=== PATIENT | female | born 1950 | race Caucasian/White ===

== ENCOUNTER 2017-04-26 15:38 | Inpatient (IN) ==
[2017-04-26] MEDS: 0.9 % SODIUM CHLORIDE 1,000 ML IV SCH ×3 (16:45→20:45)
--- NOTE | 2017-04-26 16:58 | XRay Report ---
CLINICAL INFORMATION: Weakness dizziness and productive cough COMPARISON: 04/28/2016 FINDINGS: Moderate size hiatal hernia is stable. Mild cardiomegaly is unchanged. Right subclavian Port-A-Cath tip overlies the mid right atrium. Lungs are clear. No effusion. Minimal chronic wedging midthoracic vertebral bodies stable IMPRESSION: Moderate size hiatal hernia - stable. No pneumonia or other acute disease evident Interpreted and Authenticated by: Mariano Silva 04/26/17
[2017-04-26 17:01] LABS: Creatine Kinase MB 1.9 ng/ml (0-2.9)
[2017-04-26 17:02] LABS: ALT/SGPT 33 U/l (0-40); Albumin 3.6 gm/dL (3.2-5.2); Albumin/Globulin Ratio 0.9 (1.0-2.3); Alkaline Phosphatase 72 U/L (39-117); Basophils # (Auto) 0 K/mcL (0.0-0.3); Basophils % (Auto) 0.1 % (0.0-2.0); Blood Urea Nitrogen 27 mg/dl (8-23); Creatine Kinase 108 IU/L (24-170); Eosinophils # (Auto) 0.3 K/mcL (0.0-0.7); Eosinophils % (Auto) 3.1 % (0.0-7.0); Granulocytes % (Auto) 62.8 % (38.0-78.0); Lymphocytes # (Auto) 2.6 K/mcL (1.5-4.8); Lymphocytes % (Auto) 29.7 % (15.5-49.0); Mean Cell Volume 114.9 fL (80.0-100.0); Mean Corpuscular HGB Conc 33.7 g/dL (31.0-36.0); Mean Corpuscular Hemoglobin 38.8 pg (26.0-34.0); Monocytes # (Auto) 0.4 K/mcL (0.1-0.9); Monocytes % (Auto) 4.3 % (1.0-12.0); Platelet Count 56 K/mcL (140-440); RBC 2.16 M/mcL (4.00-5.20); Red Cell Distribution Width 20.5 % (11.5-14.5)
--- NOTE | 2017-04-26 19:25 | Emergency Department Note ---
Dizziness HPI - General Chief Complaint: Dizziness Stated Complaint: Dizziness, productive cough Time Seen by Provider: 04/26/17 15:43 Source: patient Mode of arrival: wheelchair Limitations: no limitations - History of Present Illness HPI Narrative: 66-year-old female presents with dizziness and weakness. Onset 3 weeks ago but much worse over the last 48 hours. States "I am just not doing well ". States she has stage IV breast cancer with metastases to the bone. States she hurts all over and takes hydrocodone and morphine at home and they have increased her hydrocodone dose for the last 4 weeks or so. Unsure if that is related. No shortness of breath. No difficulty breathing. States she just generally feels weak. No abdominal pain. No dysuria or frequency. She has had a chronic cough she reports for about 6 months. States they did a chest x-ray a couple months ago that did not show anything. States her oncologist is Dr. Silverio. States she is having a hard time getting around due to weakness and constant dizziness. Does not have enough help at home. Her is here and is very poor historian and hard to get any information from. She denies being set up with hospice or any type of home health. The patient states she wants to be a no code and comfort measures only. However the states he wants everything done. He does not have a living will or advanced directive. She does not have any family close by, they are all in [place]. No fever or chills. States she had some nausea for a day or 2 last week but no nausea since then. No vomiting or diarrhea. - Related Data Home Medications Medication Instructions Recorded Confirmed gabapentin 600 mg tablet 600 mg PO TID 04/06/16 04/26/17 hydrocodone 7.5 mg-acetaminophen 1 tab PO Q4H PRN tab 04/06/16 04/26/17 325 mg tablet letrozole 2.5 mg tablet 2.5 mg PO QDAY tab 04/06/16 04/26/17 montelukast 10 mg tablet 10 mg PO QDAY tab 04/06/16 04/26/17 morphine 15 mg immediate release 15 mg PO QDAY PRN tab 04/06/16 04/26/17 tablet tizanidine 4 mg capsule 4 mg PO TID cap 04/06/16 04/26/17 ferrous gluconate 324 mg (36 mg 324 mg PO QDAY 07/25/17 10/31/17 iron) tablet multivitamin tablet 1 tab-cap PO QDAY 01/18/17 04/26/17 omeprazole 20 mg capsule,delayed 20 mg PO BID 01/18/17 04/26/17 release venlafaxine ER 150 mg 150 mg PO QDAY 01/18/17 04/26/17 capsule,extended release 24 hr baclofen 20 mg tablet 20 mg PO TID tab 02/10/17 04/26/17 lorazepam 1 mg tablet 1 mg PO QHS tab 02/10/17 04/26/17 polyethylene glycol 3350 17 PO 30 Days #527 02/10/17 04/26/17 gram/dose oral powder trazodone 100 mg tablet 100 mg PO QDAY tab 02/10/17 04/26/17 Previous Rx's Medication Instructions Recorded folic acid 1 mg tablet 1 mg PO QDAY #30 tab 01/06/17 tamsulosin 0.4 mg capsule 0.4 mg PO QDAY #30 cap 01/18/17 methotrexate sodium 2.5 mg tablet 20 mg PO QWEEK #32 tab 02/10/17 Allergies Allergy/AdvReac Type Severity Reaction Status Date / Time docetaxel [From Taxotere] Allergy Unknown Unknown Verified 04/26/17 15:43 duloxetine [From Cymbalta] Allergy Unknown Unknown Verified 04/26/17 15:43 topiramate [From Topamax] Allergy Unknown Unknown Verified 04/26/17 15:43 tramadol Allergy Unknown Unknown Verified 04/26/17 15:43 Review of Systems All systems ED: reviewed and negative except as stated. Past Medical History - Past Medical History [facility] Narrative: Medical History (Last Reviewed 04/26/17 @ 15:22 by Jessica Zurita RN) Urinary hesitancy (Chronic) Urinary frequency (Chronic) Encounter for long-term (current) use of high-risk medication (Chronic) Metastatic breast cancer (Chronic) Rheumatoid arthritis (Chronic) Fibromyalgia (Chronic) Back pain (Chronic) Polyarthralgia (Chronic) Arthritis (Chronic) Swelling (Chronic) Chronic elbow pain (Chronic) Chronic hand pain (Chronic) Past Surgical History (Last Reviewed 04/26/17 @ 15:22 by Jessica Zurita RN) H/O mastectomy (Acute) History of cardiac cath (Acute) History of cholecystectomy (Acute) No pertinent past surgical history (Ruled-out) Source: other (Please note both the patient and spouse are extremely poor historians and hard to get information from) Medical history: Reports: arthritis, other (Stage IV breast cancer, metastasis to the bone., ra) Surgical history ED: Reports: cholecystectomy - Social History smoking status: Never smoker Alcohol use: Reports: None Drug use: Reports: none Physical Exam - General Limitations: no limitations General appearance: alert (Sleepy but awakens easily and is alert and oriented 4), other (Very pale.) - Head Head exam: atraumatic, normocephalic, normal inspection - Eye Eye exam: Present: normal appearance. Absent: conjunctival injection - ENT ENT exam: normal exam, normal oropharynx, mucous membranes moist, TM's normal bilaterally, normal external ear exam - Neck Neck exam: Present: normal inspection, trachea midline. Absent: tenderness, lymphadenopathy - Chest Chest inspection: Present: normal inspection, symmetric chest wall rise - Respiratory Respiratory exam: Present: normal lung sounds bilaterally. Absent: respiratory distress, wheezes, accessory muscle use - Cardiovascular Cardiovascular exam: Present: regular rate, normal heart sounds - Abdominal Exam Abdominal exam: Present: soft, normal bowel sounds. Absent: distention, tenderness, guarding - Neurological Exam Neurological exam: Present: alert, oriented X3, CN II-XII intact - Expanded Neurological Exam Patient oriented to: Present: person, place, time - Psychiatric Psychiatric exam: Present: normal affect, normal mood - Skin Skin exam: Present: warm, dry, intact. Absent: normal color (Pale), diaphoresis Course Course Narrative: When lying flat dizziness improves. With any movement dizziness is severe. She is very weak and needs is a 2 person assist to get up and around. Vital signs originally stable when she came in upon trying to get orthostatic vital signs she became hypotensive, blood pressure 70s over 30s consistently. She did receive a fluid bolus of 2 L of normal saline and is improved and now for the last hour or so has blood pressures that are stable 100s over 60s. She is however still volume dependent as if she sits up or moves around her blood pressure does drop. I did speak with Dr. Witt, the on-call oncologist. We reviewed her labs including low platelet count and anemia. Her suggestion we will add a d-dimer and do a CT of the chest to rule out PE if d-dimer is elevated. Her d-dimer is slightly elevated however her BUN and creatinine are borderline high. The best option for this patient is probably to hydrate her some more and see if her BUN and creatinine improved prior to doing a contrast study. There is some definite conflict between the patient and her spouse as she wants to be a comfort care only and no code in the patient's wants her to be a full code. 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 I also do not have any home health or hospice and really needs some extra help in care at home. It sounds like she does not eat or drink much and has a hard time getting around and is getting worse each day. This patient would greatly benefit worse with some IV fluids for dehydration and being set up with some home health or hospice. I did talk to Dr. Morrissey the hospitalist who agrees to admit Vital Signs Temperature 97.1 F 04/26/17 15:39 Pulse Rate 97 H 04/26/17 15:39 Respiratory Rate 18 04/26/17 15:39 Blood Pressure 122/61 04/26/17 15:39 Pulse Oximetry (%) 93 04/26/17 15:39 Temperature 97.1 F 04/26/17 15:39 Pulse Rate 59 L 04/26/17 18:31 Respiratory Rate 11 L 04/26/17 18:31 Blood Pressure 95/64 04/26/17 18:31 Pulse Oximetry (%) 99 04/26/17 18:31 Dizziness - MDM Narrative Medical decision making narrative: Chest x-ray negative - Lab Data Lab results reviewed: Yes I reviewed the patient's lab results. Result diagrams: 04/26/17 16:01 04/26/17 16:01 Lab Results 04/26/17 04/26/17 04/26/17 Range/Units 16:01 16:01 16:01 WBC 8.9 (4.5-11.0) K/mcL RBC 2.16 L (4.00-5.20) M/mcL Hgb 8.4 L (12.0-15.0) g/dL Hct 24.8 L (36.0-48.0) % MCV 114.9 H (80.0-100.0) fL MCH 38.8 H (26.0-34.0) pg MCHC 33.7 (31.0-36.0) g/dL RDW 20.5 H (11.5-14.5) % Plt Count 56 L (140-440) K/mcL MPV 8.4 (7.4-10.4) fL Gran % 62.8 (38.0-78.0) % Lymph % (Auto) 29.7 (15.5-49.0) % [place] % (Auto) 4.3 (1.0-12.0) % Eos % (Auto) 3.1 (0.0-7.0) % Baso % (Auto) 0.1 (0.0-2.0) % Gran # 5.6 (1.8-8.0) K/mcL Lymph # (Auto) 2.6 (1.5-4.8) K/mcL [place] # (Auto) 0.4 (0.1-0.9) K/mcL Eos # (Auto) 0.3 (0.0-0.7) K/mcL Baso # (Auto) 0 (0.0-0.3) K/mcL Differential Comment Few nrbcs on scan D-Dimer (0.00-0.40) ug/ml VBG Lactic Acid 1.1 (0.5-2.2) mmol/L Sodium 140 (133-145) mmol/L Potassium 4.2 (3.3-5.1) mmol/L Chloride 101 (96-108) mmol/L Carbon Dioxide 24 (22-30) mmol/L Anion Gap 15.0 (8-16) BUN 27 H (8-23) mg/dl Creatinine 1.4 H (0.6-1.1) mg/dl GFR Calculation 39 Glucose 100 (70-105) mg/dL Calcium 9.8 (8.6-10.4) mg/dl Total Bilirubin 0.4 (0.0-1.0) mg/dL AST 95 H (0-37) U/l ALT 33 (0-40) U/l Alkaline Phosphatase 72 (39-117) U/L Total Creatine Kinase 108 (24-170) IU/L CK-MB (CK-2) 1.9 (0-2.9) ng/ml Troponin T (0-0.03) ng/ml Total Protein 7.4 (5.9-8.4) gm/dL Albumin 3.6 (3.2-5.2) gm/dL Globulin 3.8 H (2.2-3.7) gm/dL Albumin/Globulin Ratio 0.9 L (1.0-2.3) 04/26/17 04/26/17 04/26/17 Range/Units 16:01 16:01 18:00 WBC (4.5-11.0) K/mcL RBC (4.00-5.20) M/mcL Hgb (12.0-15.0) g/dL Hct (36.0-48.0) % MCV (80.0-100.0) fL MCH (26.0-34.0) pg MCHC (31.0-36.0) g/dL RDW (11.5-14.5) % Plt Count (140-440) K/mcL MPV (7.4-10.4) fL Gran % (38.0-78.0) % Lymph % (Auto) (15.5-49.0) % [place] % (Auto) (1.0-12.0) % Eos % (Auto) (0.0-7.0) % Baso % (Auto) (0.0-2.0) % Gran # (1.8-8.0) K/mcL Lymph # (Auto) (1.5-4.8) K/mcL [place] # (Auto) (0.1-0.9) K/mcL Eos # (Auto) (0.0-0.7) K/mcL Baso # (Auto) (0.0-0.3) K/mcL Differential Comment D-Dimer 2.66 H (0.00-0.40) ug/ml VBG Lactic Acid (0.5-2.2) mmol/L Sodium (133-145) mmol/L Potassium (3.3-5.1) mmol/L Chloride (96-108) mmol/L Carbon Dioxide (22-30) mmol/L Anion Gap (8-16) BUN (8-23) mg/dl Creatinine (0.6-1.1) mg/dl GFR Calculation Glucose (70-105) mg/dL Calcium (8.6-10.4) mg/dl Total Bilirubin (0.0-1.0) mg/dL AST (0-37) U/l ALT (0-40) U/l Alkaline Phosphatase (39-117) U/L Total Creatine Kinase (24-170) IU/L CK-MB (CK-2) (0-2.9) ng/ml Troponin T < 0.01 < 0.01 (0-0.03) ng/ml Total Protein (5.9-8.4) gm/dL Albumin (3.2-5.2) gm/dL Globulin (2.2-3.7) gm/dL Albumin/Globulin Ratio (1.0-2.3) - Radiology Data Radiology results reviewed: Yes I reviewed the patient's radiology results. Disposition Pt seen by ORGANIZATIONAL PSYCHOLOGIST/PA only: No Clinical Impression: Dehydration, Orthostatic hypotension, Breast cancer, Anemia, Thrombocytopenia Disposition: Xfer As Inpt ([facility]) Condition: Fair Referrals: Curtis Batista MD [Primary Care Provider] - Yuval Silverio MD [Physician] - Time of Disposition: 19:30
--- NOTE | 2017-04-26 19:49 | Internal Med History&Physical ---
Medical - H&P: HPI Patient information: Note initiated : 04/26/17 at 7:42 pm Service Date, if different from initiated Date: [] Patient: Marika Bettencourt 66 y/o F admitted on for Dizziness, productive cough. Chief Complaint: [] Chief complaint: Weakness. History of present illness: Ms. Bettencourt is a 66 year old female who was diagnosed with breast cancer in approximately 2005. She now has metastatic breast cancer, stage IV, with metastases to bone, etc. She is currently receiving both tamoxifen and and immunotherapy injection every [address] Silverio's oncology group. She presented to Dr. Duran's office today for follow-up, and he found her blood pressure to be quite low. He called Dr. Batista, who asked her to go to the emergency room for evaluation. The patient notes she has been slightly dizzy on and off for the last couple of months. She has been feeling a little more fatigued, and in general is able to get herself in and out of bed and into her wheelchair, which is her normal mode of transportation. She says she tries to drink at least 4-6 cups of fluid every day. She otherwise does not think that she has felt a lot different lately. She denies fever chills, headaches or dizziness, although she has a history of migraines. She denies new eye or ear symptoms. She says her throat is sore only occasionally. She denies chest pain or palpitations, shortness of breath or wheezing. She does have chronic phlegm in her throat. She denies abdominal pain, nausea or vomiting, diarrhea or constipation, or dysuria. ER evaluation initially looked like dehydration. She was given IV fluids, but then had more nausea and vomiting and dropped her blood pressure into the 70s. She was also rather bradycardic. Her oncologist identification clerk was contacted. They requested a d-dimer, which was elevated. They then wanted a CT angiogram. Unfortunately, the patient's creatinine is a bit elevated, so it was decided to admit her for IV hydration, so that we can perhaps do a CT angiogram in the morning. Oncology felt she was at high risk for blood clots, given her ongoing cancer treatment, and today's episodes of bradycardia and hypotension. Medical History Encounter for long-term (current) use of high-risk medication (Acute) Polyarthralgia (Acute) Arthritis (Chronic) Back pain (Chronic) Chronic elbow pain (Chronic) Chronic hand pain (Chronic) Fibromyalgia (Chronic) Metastatic breast cancer (Chronic) with bone metasteses, anemia and fatigue Rheumatoid arthritis (Chronic) Swelling (Chronic) Urinary frequency (Chronic) Urinary hesitancy (Chronic) Surgical History H/O mastectomy (Acute) Double History of cardiac cath (Acute) History of cholecystectomy (Acute) No pertinent past surgical history (Ruled-out) Medication List baclofen 20 mg PO TID ferrous gluconate 324 mg PO QDAY folic acid 1 mg PO QDAY gabapentin 600 mg PO TID hydrocodone-acetaminophen 7.5-325 mg 1 tab PO Q4H PRN letrozole 2.5 mg PO QDAY lorazepam 1 mg PO QHS methotrexate sodium take 15mg (6 tabs) once weekly montelukast 10 mg PO QDAY morphine 15 mg PO QDAY PRN multivitamin tablet 1 tab-cap PO QDAY omeprazole 20 mg PO BID polyethylene glycol 3350 PO 30 days tamsulosin (Flomax) 0.4 mg PO QDAY tizanidine 4 mg PO TID trazodone 100 mg PO QDAY venlafaxine ER 150 mg PO QDAY Allergies/Adverse Reactions docetaxel [From Taxotere] duloxetine [From Cymbalta] topiramate [From Topamax] tramadol Allergy Family History Other Diabetes type 2, controlled HTN (hypertension) Heart attack Social History smoking status: Never smoker alcohol intake frequency: does not drink substance use type: does not use Medical - H&P: Meds Home Medications Medication Instructions Recorded Confirmed Type gabapentin 600 mg tablet 1,200 mg PO TID 04/06/16 04/26/17 History hydrocodone 7.5 mg-acetaminophen 1 tab PO QIDP PRN tab 04/06/16 04/26/17 History 325 mg tablet montelukast 10 mg tablet 10 mg PO QDAY tab 04/06/16 04/26/17 History tizanidine 4 mg capsule 4 mg PO TID cap 04/06/16 04/26/17 History folic acid 1 mg tablet 1 mg PO QDAY #30 tab 01/06/17 04/26/17 Rx ferrous gluconate 324 mg (36 mg 324 mg PO QDAY 01/18/17 04/26/17 History iron) tablet omeprazole 20 mg capsule,delayed 40 mg PO BID 01/18/17 04/26/17 History release tamsulosin 0.4 mg capsule 0.4 mg PO QDAY #30 cap 01/18/17 04/26/17 Rx venlafaxine ER 150 mg 150 mg PO QDAY 01/18/17 04/26/17 History capsule,extended release 24 hr baclofen 20 mg tablet 20 mg PO TID tab 02/10/17 04/26/17 History lorazepam 1 mg tablet 3 mg PO QHS tab 02/10/17 04/26/17 History trazodone 100 mg tablet 2.5 tab PO QDAY tab 02/10/17 04/26/17 History Methotrexate Sodium [Methotrexate] 15 mg PO QWEEK 04/26/17 04/26/17 History Tamoxifen 20 mg PO DAILY 04/26/17 04/26/17 History morphine SULFATE [Morphine Sulfate 20 mg PO BID 04/26/17 04/26/17 History ER] Allergies Allergy/AdvReac Type Severity Reaction Status Date / Time docetaxel [From Taxotere] Allergy Unknown Unknown Verified 04/26/17 15:43 duloxetine [From Cymbalta] Allergy Unknown Unknown Verified 04/26/17 15:43 topiramate [From Topamax] Allergy Unknown Unknown Verified 04/26/17 15:43 tramadol Allergy Unknown Unknown Verified 04/26/17 15:43 Medical - H&P: Exam - Constitutional Vitals: Temp Pulse Resp BP Pulse Ox 97.1 F 59 L 11 L 95/64 99 04/26/17 15:39 04/26/17 18:31 04/26/17 18:31 04/26/17 18:31 04/26/17 18:31 On exam, she is a very pale elderly female is quite fatigued. She is too weak to even roll over in bed without assistance. [place] head: Normocephalic, atraumatic. Eyes: Her right eye seems to wander a bit when I am talking to her, but seems intact on EOM testing. Pupils are only sluggishly reactive. Sclera are anicteric. Ears: TMs and canals are clear. Pharynx: Is clear, but crowded. Teeth are in good repair. Neck: Is supple, without obvious lymphadenopathy, JVD, thyromegaly, bruits. Cardiac exam shows regular rate and rhythm with normal S1 and S2, without murmurs, rubs, gallops. Her port is accessed in her right upper chest. Lungs: Are clear to auscultation, without rales, rhonchi, wheezes. Abdomen: Is obese, but soft and nontender with no obvious masses. Bowel sounds are active. Extremities: Show no cyanosis, clubbing, edema. Neurologic exam: Patient's mental status is a little bit drifty. Otherwise, she is alert and oriented. She appears to have generalized weakness, but no obvious focal findings. Medical - H&P: Reslt - Labs CBC & Chem 7: 04/26/17 16:01 04/26/17 16:01 Labs: Short CBC 04/26/17 Range/Units 16:01 WBC 8.9 (4.5-11.0) K/mcL Hgb 8.4 L (12.0-15.0) g/dL Hct 24.8 L (36.0-48.0) % Plt Count 56 L (140-440) K/mcL BMP 04/26/17 16:01 Sodium 140 Potassium 4.2 Chloride 101 Carbon Dioxide 24 BUN 27 H Creatinine 1.4 H Glucose 100 Calcium 9.8 Cardiac Enzymes 04/26/17 04/26/17 04/26/17 Range/Units 16:01 16:01 18:00 Total Creatine Kinase 108 (24-170) IU/L CK-MB (CK-2) 1.9 (0-2.9) ng/ml Troponin T < 0.01 < 0.01 (0-0.03) ng/ml Liver Function 04/26/17 Range/Units 16:01 Total Bilirubin 0.4 (0.0-1.0) mg/dL AST 95 H (0-37) U/l ALT 33 (0-40) U/l Alkaline Phosphatase 72 (39-117) U/L Albumin 3.6 (3.2-5.2) gm/dL D-dimer is elevated at 2.66. Lactic acid is normal at 1.1 Urinalysis shows pH of 5, specific gravity 1.010, negative glucose, nitrites, leukocyte esterase Chest x-ray: Shows moderate hiatal hernia. Otherwise no acute disease. EKG: Shows sinus tachycardia at a rate of 100, with slight left axis deviation. Small Q waves noted in leads I and L. There is no acute ST-T changes. Medical - H&P: A/P (1) Dehydration Current visit: Yes Status: Acute (2) Orthostatic hypotension Current visit: Yes Status: Acute (3) Anemia Current visit: Yes Status: Acute (4) Thrombocytopenia Current visit: Yes Status: Acute (5) Metastatic breast cancer Problem details: with bone metasteses, anemia and fatigue Current visit: No Status: Chronic (6) Rheumatoid arthritis Current visit: No Status: Chronic (7) Fibromyalgia Current visit: No Status: Chronic - Narrative A/P Narrative: #1. Weakness. Patient presents with increasing weakness. She was hypotensive in the emergency room, and appears to be dehydrated. She had mild tachycardia and borderline room air hypoxia in the emergency room. Oncology was contacted, and they wanted her treated aggressively, and evaluated for possible pulmonary embolism. -Admit for observation. -IV fluids. -Recheck labs in the morning. 2. Pulmonary. Patient presents with tachycardia and borderline room air hypoxemia. D-dimer is elevated. Creatinine is too high to allow CT angiogram this evening, but if that is back to normal in the morning, we could proceed with CT angiogram, per oncology's request. 3. Hematologic. The patient is quite a bit more anemic than previously, and also has very low platelets. She is high risk for use of heparins and other anticoagulants. -Check stool guaiacs. -Recheck labs in the morning. 4. Oncology. This patient has known metastatic breast cancer. She is apparently undergoing ongoing chemotherapy. We will touch base with oncology after receipt tomorrow's labs. -It sounds like the patient has very poor oral intake at home, and increasingly difficult to control pain. We will ask social work to evaluate her, and review whether she may want to consider home health or home hospice. -Continue as needed morphine, hydrocodone. -Continue letrozole, and other chemo as recommended by oncology. 5. CODE STATUS: The patient has requested a DNR CODE STATUS. Apparently her is objecting to this. For now, I will abide by the patient's wishes. 6. DVT prophylaxis: Due to very low platelets, we will use SCDs instead of heparin at this time. 7. Rheumatology History of rheumatoid arthritis. Continue baclofen, folate, gabapentin, methotrexate, Tizanidine, venlafaxine. 8. . Chronic urinary incontinence issues. Continue Flomax. 9. GI. GERD? Continue omeprazole. Continue MiraLAX. 10. Depression? Continue venlafaxine, trazodone, lorazepam. Today's visit took approximately 60 minutes, to review her case with the ER MD, review her records and test results, interview and examine her, and write orders.
[2017-04-26] MEDS ORDERED: tiZANidine 4 MG TABLET PO SCH (21:00)
[2017-04-26] MEDS ORDERED: traZODone HCL 100 MG TABLET PO SCH (21:00)
[2017-04-26] MEDS ORDERED: HEPARIN 5,000 UNIT/ML VIAL SQ SCH (21:00)
[2017-04-26] MEDS ORDERED: IOPAMIDOL 100 ML BOTTLE IV ONE (21:28)
[2017-04-26] MEDS ORDERED: POTASSIUM CHLORIDE 20 MEQ in DEXTROSE 5%-1/2NS 1,000 ML IV SCH (21:41)
[2017-04-26] MEDS ORDERED: CALCIUM CARBONATE 500 MG TAB.CHEW CHEWED PRN (21:41)
[2017-04-26] MEDS ORDERED: NALOXONE HCL 0.4 MG/ML VIAL IV PRN (21:41)
[2017-04-26] MEDS ORDERED: ACETAMINOPHEN 325 MG TABLET PO PRN (21:41)
[2017-04-26] MEDS ORDERED: MAGNESIUM HYDROXIDE 30 ML ORAL.SUSP PO PRN (21:41)
[2017-04-26] MEDS ORDERED: ALBUTEROL SULFATE 2.5 MG/3 ML NEBULIZER NEB PRN (21:41)
[2017-04-26] MEDS ORDERED: DOCUSATE SODIUM 100 MG CAPSULE PO PRN (21:41)
[2017-04-26] MEDS: DEXTROSE 5%-1/2NS W/20MEQ KCL 1,000 ML IV SCH (21:50)
[2017-04-26] MEDS ORDERED: traZODone HCL 50 MG TABLET ONE ×2 (23:43→23:46)
[2017-04-26] MEDS: BACLOFEN 10 MG TABLET PO SCH (23:43)
[2017-04-26] MEDS: GABAPENTIN 400 MG CAPSULE PO SCH (23:46)
[2017-04-26] MEDS: HYDROCODONE/APAP 7.5/325MG TABLET PO PRN (23:46)
[2017-04-26] MEDS: 0.9 % SODIUM CHLORIDE 10 ML SYRINGE IV SCH (23:47)
[2017-04-26] MEDS: LORazepam 1 MG TABLET PO SCH (23:55)
[2017-04-27] MEDS ORDERED: METOPROLOL TARTRATE 5 MG/5 ML VIAL IV ONE ×2 (02:12→02:22)
[2017-04-27] MEDS: 0.9 % SODIUM CHLORIDE 10 ML SYRINGE IV SCH ×3 (05:46→21:16)
[2017-04-27] MEDS: DEXTROSE 5%-1/2NS W/20MEQ KCL 1,000 ML IV SCH ×3 (05:46→15:33)
[2017-04-27 07:11] LABS: ALT/SGPT 29 U/l (0-40); Albumin 3.1 gm/dL (3.2-5.2); Albumin/Globulin Ratio 0.9 (1.0-2.3); Alkaline Phosphatase 82 U/L (39-117); Bilirubin,Direct 0.2 mg/dL (0.0-0.3); Blood Urea Nitrogen 18 mg/dl (8-23); Gamma Glutamyl Transpeptidase 153 U/L (5-36); Magnesium 1.5 mg/dL (1.6-2.5); Uric Acid 6.6 mg/dL (2.5-8.0)
[2017-04-27 07:20] LABS: Basophils # (Auto) 0 K/mcL (0.0-0.3); Basophils % (Auto) 0.3 % (0.0-2.0); Eosinophils # (Auto) 0.2 K/mcL (0.0-0.7); Granulocytes % (Auto) 62.1 % (38.0-78.0); Lymphocytes # (Auto) 3.2 K/mcL (1.5-4.8); Lymphocytes % (Auto) 29.7 % (15.5-49.0); Mean Cell Volume 114.7 fL (80.0-100.0); Mean Corpuscular HGB Conc 33.7 g/dL (31.0-36.0); Mean Corpuscular Hemoglobin 38.7 pg (26.0-34.0); Monocytes # (Auto) 0.6 K/mcL (0.1-0.9); Monocytes % (Auto) 5.9 % (1.0-12.0); Platelet Count 43 K/mcL (140-440); RBC 1.98 M/mcL (4.00-5.20); Red Cell Distribution Width 19.6 % (11.5-14.5)
[2017-04-27] MEDS ORDERED: LETROZOLE 2.5 MG PO SCH (09:00)
[2017-04-27] MEDS: MULTIVIT,THER IRON,CA,FA & MIN 1 TABLET PO SCH (10:44)
[2017-04-27] MEDS: GABAPENTIN 400 MG CAPSULE PO SCH ×3 (10:44→21:12)
[2017-04-27] MEDS: POLYETHYLENE GLYCOL 3350 17 GM PACKET PO SCH (10:44)
[2017-04-27] MEDS: VENLAFAXINE 150 MG CAP.XL.24H PO SCH (10:45)
[2017-04-27] MEDS: MONTELUKAST 10 MG TABLET PO SCH (10:45)
[2017-04-27] MEDS: OMEPRAZOLE 20 MG CAPSULE PO SCH ×2 (10:45→18:23)
[2017-04-27] MEDS: FERROUS GLUCONATE 324 MG TABLET PO SCH (10:45)
[2017-04-27] MEDS: morphine 15 MG TAB.SR.12H PO SCH ×2 (10:45→21:13)
[2017-04-27] MEDS: TAMOXIFEN 10 MG TABLET PO SCH (10:45)
[2017-04-27] MEDS: FOLIC ACID 1 MG TABLET PO SCH (10:45)
[2017-04-27] MEDS: BACLOFEN 10 MG TABLET PO SCH ×3 (10:49→21:13)
--- NOTE | 2017-04-27 12:13 | Cat Scan Report ---
CLINICAL INFORMATION: Elevated d-dimer and hypotension. History of metastatic breast cancer COMPARISON: Chest CT from 07/16/2014 TECHNIQUE: Axial images obtained through the chest. 80 intravenous contrast administration was administered, and scanning was performed during pulmonary arterial phase. Sagittally and coronally reformatted images were obtained. MIP reformatted images. FINDINGS: Pulmonary parenchymal windows show mild chronic bronchitis. There is a small band of pleural parenchymal fibrosis in the anterior left upper lobe with associated traction bronchiectasis in the subsegmental bronchi which is unchanged. There is cicitration atelectasis involving the anterior, lateral, posterior and medial basilar segments of the left lower lobe which has progressed. The periphery of these lung segments remain aerated however. Small focal region of pleural parenchymal scarring in the posterior right lower lobe is new. There are no nodules and no effusions. Mediastinal windows show the pulmonary arteries are well opacified without evidence of embolus. The thoracic aorta is normal in contour and caliber. A moderate sized paraesophageal hiatal hernia is unchanged. Small pericardial effusion is noted . There is no adenopathy in the mediastinal hilar or axillary regions. Visualized upper abdomen show moderate pancreatic atrophy - as previously seen. There is now moderate intramedullary sclerosis diffusely throughout all thoracic osseous structures including the thoracic spine, ribs and sternum. This is a new finding 2015 IMPRESSION: No evidence of pulmonary embolus or other acute cardiopulmonary process Mild chronic bronchitis. Subtotal cicitration atelectasis in the anterior, medial, posterior and lateral basilar segments of the left lower lobe. This has progressed modestly 2015. There is also small band like regions of pleural parenchymal scarring in the anterior segment left upper lobe and posterior basilar segment right lobe lower lobe with minor subsegmental traction bronchiectasis. Diffuse intramedullary sclerosis throughout the thoracic spine ribs and sternum. There is a new finding since the 2015 CT. This finding has a broad differential diagnosis. With the patient's history of metastatic breast carcinoma, is could represent diffuse osteoblastic metastases. Other potential findings include myelofibrosis, hyperparathyroidism, malignancy (leukemia or lymphoma) Paget's disease and mastocytosis. Interpreted and Authenticated by: Mariano Silva 04/27/17
[2017-04-27] MEDS: IBUPROFEN 600 MG TABLET PO PRN ×2 (14:53→22:49)
--- NOTE | 2017-04-27 18:53 | Magnetic Resonance Report ---
CLINICAL INFORMATION: Dizziness and decreased mental status. History of breast cancer COMPARISON: 03/18/2017 [place] brain MRI. TECHNIQUE: Sagittal T1 FLAIR, axial diffusion ADC, T1 FLAIR, T2 FLAIR propeller, T2 propeller gradient, T1 post Magnevist and coronal T1 FLAIR post Magnevist images were acquired. FINDINGS: The ventricles, sulci, fissures and cisterns are symmetrically enlarged compatible with mild atrophy. This is unchanged. There are no extra-axial fluid collection or mass appreciated. There is scattered punctate high signal foci in subcortical and deep periventricular white matter which are unchanged. There are most likely due to chronic senescent ischemic change - typical for age. There is no evidence for restricted diffusion to suggest infarct. No cerebral hemorrhage, mass effect edema or other acute finding or change. Signal void in intracerebral arteries, extra-axial cranial nerves, pituitary and orbits are all normal. Diminished T1 marrow signal within the cervical spine and skull compatible with diffuse intramedullary sclerosis which was also noted on on a chest CT. IMPRESSION: Mild atrophy and scattered high signal foci in the cerebral white matter likely ischemic lesions rather than plaques. No change since comparison study over one month prior 03/18/2017 Interpreted and Authenticated by: Mariano Silva 04/27/17
--- NOTE | 2017-04-27 19:24 | Internal Med Progress Note ---
Medical - PN: Subj Patient information: Note initiated : 04/27/17 at 7:19 pm Service Date, if different from initiated Date: [] Patient: Marika Bettencourt 66 y/o F admitted on 04/26/17 for Dizziness, Productive Cough/Weakness, Dehydration. Chief Complaint: [] Interval history: April 26, 2017, history of present illness: Ms. Bettencourt is a 66 year old female who was diagnosed with breast cancer in approximately 2005. She now has metastatic breast cancer, stage IV, with metastases to bone, etc. She is currently receiving both tamoxifen and and immunotherapy injection every [address] Silverio[facility] oncology group. She presented to Dr. Duran's office today for follow-up, and he found her blood pressure to be quite low. He called Dr. Batista, who asked her to go to the emergency room for evaluation. The patient notes she has been slightly dizzy on and off for the last couple of months. She has been feeling a little more fatigued, and in general is able to get herself in and out of bed and into her wheelchair, which is her normal mode of transportation. She says she tries to drink at least 4-6 cups of fluid every day. She otherwise does not think that she has felt a lot different lately. She denies fever chills, headaches or dizziness, although she has a history of migraines. She denies new eye or ear symptoms. She says her throat is sore only occasionally. She denies chest pain or palpitations, shortness of breath or wheezing. She does have chronic phlegm in her throat. She denies abdominal pain, nausea or vomiting, diarrhea or constipation, or dysuria. ER evaluation initially looked like dehydration. She was given IV fluids, but then had more nausea and vomiting and dropped her blood pressure into the 70s. She was also rather bradycardic. Her oncologist [facility] [employer] was contacted. They requested a d-dimer, which was elevated. They then wanted a CT angiogram. Unfortunately, the patient's creatinine is a bit elevated, so it was decided to admit her for IV hydration, so that we can perhaps do a CT angiogram in the morning. Oncology felt she was at high risk for blood clots, given her ongoing cancer treatment, and today's episodes of bradycardia and hypotension. April 27: Last evening, the patient brought in her medications in their bubble pack. After admission, she was given her home evening medications. Thereafter, she became very confused and somnolent. She then became agitated and combative. He kept insisting on getting out of bed to urinate even though she had a Miller catheter. When the staff will try to help her up she became weight and required several staff members to get her back into bed. This morning she was very somnolent again. Etiology of her sudden depressed mental status was really not certain. We reviewed her medications, and she is certainly on a number of them that could cause depressed mental status, but the patient's insisted that she takes the same medications the same way every day. She did eventually wake up enough that we sent her for CT angiogram, regarding her hypoxemia. This did not show evidence of pulmonary embolism. Later today, she was awake enough to start requesting her medications again. She was given all but the tizanidine, and so far has remained fairly awake and cooperative this afternoon. I did call her oncologist, Dr. Silverio's, office and got Dr. Witt, the physician [facility] [employer]. I reviewed the case with her, and the patient's confusion, and her medications. They requested that the patient undergo brain MRI, even though MRI about 1 month ago looked okay. This was done, and does not show any lesions worrisome for metastases or any explanation for confusion. - Constitutional Vitals: Vital Signs Temp Pulse Resp BP Pulse Ox 98.2 F 98 H 20 148/77 91 04/27/17 15:42 04/27/17 11:48 04/27/17 15:42 04/27/17 15:42 04/27/17 15:42 Period Temp Pulse Resp BP Sys/Miller Pulse Ox Last 24 Hr 96.6 F-99.5 F 77-114 10-24 70-157/40-116 91-100 Intake and Output 04/27/17 04/27/17 04/27/17 05:59 13:59 21:59 Intake Total 1192 / 1192 1440 / 1440 Output Total 1025 / 1025 1375 / 1375 1400 / 1400 Balance 167 / 167 65 / 65 -1400 / -1400 Intake & Output: Intake & Output 04/27/17 04/27/17 04/27/17 05:59 13:59 21:59 Intake Total 1192 / 1192 1440 / 1440 Output Total 1025 / 1025 1375 / 1375 1400 / 1400 Balance 167 / 167 65 / 65 -1400 / -1400 Intake: IV 992 / 992 1000 / 1000 Dextrose 5%-1/2Ns W/20Meq KCl 1 992 / 992 1000 / 1000 ,000 ml @ 125 mls/hr IV .Q8H [facility] Rx#:[id number] Oral 200 / 200 440 / 440 Output: Urine Catheter Amount 1025 / 1025 1375 / 1375 1400 / 1400 Other: Meal Breakfast Percent of Meal Consumed 100% This morning, the patient was quite somnolent. Neck is supple without lymphadenopathy or JVD. Cardiac exam shows regular rate and rhythm. Lungs were clear to auscultation. Abdomen was soft and nontender. Extremities show no edema. neurologic exam: Patient continued quite sleepy and difficult to arouse. She does eventually wake up, and does not really have complaints to report. She and her both insist that she always takes her medications exactly the same way. Medical - PN: Obj Da - Labs CBC & Chem 7: 04/27/17 05:40 04/27/17 05:40 Labs: Abnormal Lab Results 04/27/17 04/27/17 04/26/17 05:40 05:40 16:01 RBC 1.98 L Hgb 7.7 L Hct 22.7 L MCV 114.7 H MCH 38.7 H RDW 19.6 H Plt Count 43 L* D-Dimer 2.66 H BUN Creatinine Glucose 134 H Magnesium 1.5 L GGT 153 H AST 118 H Lactate Dehydrogenase 864 H Albumin 3.1 L Globulin Albumin/Globulin Ratio 0.9 L 04/26/17 04/26/17 16:01 16:01 RBC 2.16 L Hgb 8.4 L Hct 24.8 L MCV 114.9 H MCH 38.8 H RDW 20.5 H Plt Count 56 L D-Dimer BUN 27 H Creatinine 1.4 H Glucose Magnesium GGT AST 95 H Lactate Dehydrogenase Albumin Globulin 3.8 H Albumin/Globulin Ratio 0.9 L April 27: Blood cultures negative so far. Brain MRI. IMPRESSION: Mild atrophy and scattered high signal foci in the cerebral white matter likely ischemic lesions rather than plaques. No change since comparison study over one month prior 03/18/2017 CT angiogram of the chest:IMPRESSION:No evidence of pulmonary embolus or other acute cardiopulmonary process Mild chronic bronchitis. Subtotal cicitration atelectasis in the anterior, medial, posterior and lateral basilar segments of the left lower lobe. This has progressed modestly 2015. There is also small band like regions of pleural parenchymal scarring in the anterior segment left upper lobe and posterior basilar segment right lobe lower lobe with minor subsegmental traction bronchiectasis. Diffuse intramedullary sclerosis throughout the thoracic spine ribs and sternum. There is a new finding since the 2014 CT. This finding has a broad differential diagnosis. With the patient's history of metastatic breast carcinoma, is could represent diffuse osteoblastic metastases. Other potential findings include myelofibrosis, hyperparathyroidism, malignancy (leukemia or lymphoma) Paget's disease and mastocytosis. April 26: D-dimer is elevated at 2.66. Lactic acid is normal at 1.1 Urinalysis shows pH of 5, specific gravity 1.010, negative glucose, nitrites, leukocyte esterase Chest x-ray: Shows moderate hiatal hernia. Otherwise no acute disease. EKG: Shows sinus tachycardia at a rate of 100, with slight left axis deviation. Small Q waves noted in leads I and L. There is no acute ST-T changes. Meds: Medications Acetaminophen (Tylenol) 650 mg PO Q6HP PRN PRN Reason: PAIN/FEVER > 101 Hydrocodone Bitart/Acetaminophen ([place] 7.5/325mg) 1 tab PO QIDP PRN PRN Reason: Pain Last Admin: 04/26/17 23:46 Dose: 1 tab Albuterol Sulfate (Ventolin) 2.5 mg NEB Q2HP PRN PRN Reason: Shortness Of Breath Baclofen (Lioresal) 20 mg PO TID [facility] Last Admin: 04/27/17 14:53 Dose: 20 mg Calcium Carbonate/Glycine (Tums) 1,000 mg CHEWED Q4HP PRN PRN Reason: Dyspepsia Docusate Sodium (Colace) 100 mg PO BIDP PRN PRN Reason: Constipation Ferrous Gluconate (Fergon) 324 mg PO QAC [facility] Last Admin: 04/27/17 10:45 Dose: 324 mg Folic Acid (Folic Acid) 1 mg PO QDAY [facility] Last Admin: 04/27/17 10:45 Dose: 1 mg Gabapentin (Neurontin) 1,200 mg PO TID [facility] Last Admin: 04/27/17 14:52 Dose: 1,200 mg Potassium Chloride/Dextrose/Sod Cl (Dextrose 5%-1/2ns W/20meq Kcl) 1,000 mls @ 125 mls/hr IV .Q8H [facility] Last Admin: 04/27/17 15:33 Dose: 125 mls/hr Ibuprofen (Motrin) 600 mg PO QIDP PRN PRN Reason: PAIN/FEVER > 101 Last Admin: 04/27/17 14:53 Dose: 600 mg Iron Carb/Multivit/[place]/Folic Acid (Multivitamin W/Minerals) 1 tab PO DAILY [facility] Last Admin: 04/27/17 10:44 Dose: 1 tab Lorazepam (Ativan) 3 mg PO QHS [facility] Last Admin: 04/26/17 23:55 Dose: 3 mg Magnesium Hydroxide (Milk Of Magnesia) 30 ml PO DAILYP PRN PRN Reason: Constipation Methotrexate (Methotrexate) 15 mg PO Desai@0900 [facility] Montelukast Sodium (Singular) 10 mg PO QDAY [facility] Last Admin: 04/27/17 10:45 Dose: 10 mg Morphine Sulfate (Ms Contin) 15 mg PO BID [facility] Last Admin: 04/27/17 10:45 Dose: 15 mg Morphine Sulfate (Morphine) 4 mg IV Q4HP PRN PRN Reason: Pain Last Admin: 04/27/17 05:20 Dose: 4 mg Naloxone HCl (Narcan) 0.1 mg IV Q2MIN PRN PRN Reason: Opiate Reversal Omeprazole (Prilosec) 40 mg PO BIDAC [facility] Last Admin: 04/27/17 18:23 Dose: 40 mg Ondansetron HCl (Zofran) 4 mg IV Q6HP PRN PRN Reason: Nausea And Vomiting Polyethylene Glycol (Miralax) 17 gm PO DAILY [facility] Last Admin: 04/27/17 10:44 Dose: Not Given Sodium Chloride (Saline Flush) 10 ml IV Q8 [facility] Last Admin: 04/27/17 13:17 Dose: Not Given Tamoxifen Citrate (Tamoxifen) 20 mg PO DAILY [facility] Last Admin: 04/27/17 10:45 Dose: 20 mg Trazodone HCl (Desyrel) 250 mg PO HS [facility] Venlafaxine HCl (Effexor Xr) 150 mg PO QDAY [facility] Last Admin: 04/27/17 10:45 Dose: 150 mg Medical - PN: A/P - Time Spent With Patient Total time spent is greater than 50% in coordination of care (as documented) at patient's floor/unit and/or counseling patient: Greater than 35 minutes (1) Dehydration Status: Acute Current Visit: Yes (2) Orthostatic hypotension Status: Acute Current Visit: Yes (3) Anemia Status: Acute Current Visit: Yes (4) Thrombocytopenia Status: Acute Current Visit: Yes (5) Metastatic breast cancer Problem details: with bone metasteses, anemia and fatigue Status: Chronic Current Visit: No (6) Rheumatoid arthritis Status: Chronic Current Visit: No (7) Fibromyalgia Status: Chronic Current Visit: No - Narrative A/P Narrative: #1. Weakness. Patient presents with increasing weakness. She was hypotensive in the emergency room, and appears to be dehydrated. She had mild tachycardia and borderline room air hypoxia in the emergency room. Oncology was contacted, and they wanted her treated aggressively, and evaluated for possible pulmonary embolism. -The patient became quite somnolent and limp last night after taking her usual medications. She appeared oversedated. Today, tizanidine was held, and other morning medications were given late. So far this afternoon she is more alert and seems to be tolerating them better. She is no longer hypotensive. She did have episodes of hypoxia last night, but currently is maintaining saturations on 0-1 there is by nasal cannula. CT scan of her chest did not show pneumonia or other obvious cause of hypoxia. Oncology is suspicious of oversedation. 2. Pulmonary. Patient presents with tachycardia and borderline room air hypoxemia. D-dimer is elevated. -CT angiogram does not show PE.. 3. Hematologic. The patient is quite a bit more anemic than previously, and also has very low platelets. She is high risk for use of heparins and other anticoagulants. CT scan today shows medullary sclerosis, which may be contributing to her relative pancytopenia. 4. Oncology. This patient has known metastatic breast cancer. She is apparently undergoing ongoing chemotherapy. Patient's case was reviewed extensively today with both Dr. Witt and Dr. Silverio of oncology. They recommended her follow-up MRI, which did not show evidence of brain metastasis. -It sounds like the patient has had very poor oral intake at home, and increasingly difficult to control pain. We will ask social work to evaluate her , and review whether she may want to consider home health or home hospice. -Continue as needed morphine, hydrocodone. -Continue letrozole, and other chemo as recommended by oncology. 5. CODE STATUS: The patient has requested a DNR CODE STATUS. Apparently her is objecting to this. For now, I will abide by the patient's wishes. 6. DVT prophylaxis: Due to very low platelets, we will use SCDs instead of heparin at this time. 7. Rheumatology History of rheumatoid arthritis. Continue baclofen, folate, gabapentin, methotrexate, venlafaxine. Tizanidine is on hold. So far today, the patient appears fairly comfortable. 8. . Chronic urinary incontinence issues. Continue Flomax. 9. GI. GERD? Continue omeprazole. Continue MiraLAX. 10. Depression? Continue venlafaxine, trazodone, lorazepam. Family 40 minutes was spent today, reviewing test results, interviewing and examining the patient, ordering more tests and reviewing results of those, and then reviewing the case at length with oncology. Medical - PN: Qual - Stroke Symptom Onset Unknown: No - VTE Deep Vein Thrombosis/Pulmonary Embolism Present on Admission: No
[2017-04-27] MEDS: LORazepam 1 MG TABLET PO SCH (21:12)
[2017-04-27] MEDS: traZODone HCL 50 MG TABLET PO SCH (21:12)
[2017-04-28] MEDS: HYDROCODONE/APAP 7.5/325MG TABLET PO PRN ×4 (00:05→20:03)
[2017-04-28] MEDS: DEXTROSE 5%-1/2NS W/20MEQ KCL 1,000 ML IV SCH ×6 (00:07→23:03)
[2017-04-28] MEDS: 0.9 % SODIUM CHLORIDE 10 ML SYRINGE IV SCH ×3 (04:44→23:04)
[2017-04-28 06:45] LABS: Basophils # (Auto) 0 K/mcL (0.0-0.3); Basophils % (Auto) 0.2 % (0.0-2.0); Eosinophils # (Auto) 0.2 K/mcL (0.0-0.7); Eosinophils % (Auto) 2.2 % (0.0-7.0); Granulocytes % (Auto) 54.3 % (38.0-78.0); Lymphocytes # (Auto) 3.6 K/mcL (1.5-4.8); Lymphocytes % (Auto) 37.7 % (15.5-49.0); Mean Cell Volume 113.3 fL (80.0-100.0); Mean Corpuscular HGB Conc 33.8 g/dL (31.0-36.0); Mean Corpuscular Hemoglobin 38.3 pg (26.0-34.0); Monocytes # (Auto) 0.5 K/mcL (0.1-0.9); Monocytes % (Auto) 5.6 % (1.0-12.0); Platelet Count 35 K/mcL (140-440); RBC 1.87 M/mcL (4.00-5.20); Red Cell Distribution Width 19.9 % (11.5-14.5)
[2017-04-28 07:04] LABS: ALT/SGPT 26 U/l (0-40); Albumin/Globulin Ratio 0.9 (1.0-2.3); Alkaline Phosphatase 86 U/L (39-117); Bilirubin,Direct 0.2 mg/dL (0.0-0.3); Blood Urea Nitrogen 11 mg/dl (8-23); Gamma Glutamyl Transpeptidase 141 U/L (5-36); Magnesium 1.7 mg/dL (1.6-2.5); Uric Acid 5.5 mg/dL (2.5-8.0)
[2017-04-28] MEDS: FERROUS GLUCONATE 324 MG TABLET PO SCH (08:25)
[2017-04-28] MEDS: OMEPRAZOLE 20 MG CAPSULE PO SCH ×2 (08:25→16:47)
[2017-04-28] MEDS: ONDANSETRON 4 MG/2 ML VIAL IV PRN (09:20)
[2017-04-28] MEDS: IBUPROFEN 600 MG TABLET PO PRN ×3 (09:22→20:03)
[2017-04-28] MEDS: morphine 15 MG TAB.SR.12H PO SCH ×2 (09:22→21:18)
[2017-04-28] MEDS: GABAPENTIN 400 MG CAPSULE PO SCH ×3 (11:16→21:17)
[2017-04-28] MEDS: MULTIVIT,THER IRON,CA,FA & MIN 1 TABLET PO SCH (11:16)
[2017-04-28] MEDS: BACLOFEN 10 MG TABLET PO SCH ×3 (11:16→21:18)
[2017-04-28] MEDS: VENLAFAXINE 150 MG CAP.XL.24H PO SCH (11:16)
[2017-04-28] MEDS: MONTELUKAST 10 MG TABLET PO SCH (11:17)
[2017-04-28] MEDS: POLYETHYLENE GLYCOL 3350 17 GM PACKET PO SCH (11:17)
[2017-04-28] MEDS: TAMOXIFEN 10 MG TABLET PO SCH (11:18)
[2017-04-28] MEDS: FOLIC ACID 1 MG TABLET PO SCH (11:18)
[2017-04-28] MEDS ORDERED: 0.9 % SODIUM CHLORIDE 250 ML IV SCH (15:00)
--- NOTE | 2017-04-28 15:27 | Internal Med Progress Note ---
Medical - PN: Subj Patient information: Note initiated : 04/28/17 at 3:27 pm Service Date, if different from initiated Date: [] Patient: Marika Bettencourt 66 y/o F admitted on 04/26/17 for Dizziness, Productive Cough/Weakness, Dehydration. Chief Complaint: [] Interval history: April 26, 2017, history of present illness: Ms. Bettencourt is a 66 year old female who was diagnosed with breast cancer in approximately 2005. She now has metastatic breast cancer, stage IV, with metastases to bone, etc. She is currently receiving both tamoxifen and and immunotherapy injection every [address] Silverio's oncology group. She presented to Dr. Duran's office today for follow-up, and he found her blood pressure to be quite low. He called Dr. Batista, who asked her to go to the emergency room for evaluation. The patient notes she has been slightly dizzy on and off for the last couple of months. She has been feeling a little more fatigued, and in general is able to get herself in and out of bed and into her wheelchair, which is her normal mode of transportation. She says she tries to drink at least 4-6 cups of fluid every day. She otherwise does not think that she has felt a lot different lately. She denies fever chills, headaches or dizziness, although she has a history of migraines. She denies new eye or ear symptoms. She says her throat is sore only occasionally. She denies chest pain or palpitations, shortness of breath or wheezing. She does have chronic phlegm in her throat. She denies abdominal pain, nausea or vomiting, diarrhea or constipation, or dysuria. ER evaluation initially looked like dehydration. She was given IV fluids, but then had more nausea and vomiting and dropped her blood pressure into the 70s. She was also rather bradycardic. Her oncologist stone mill operator was contacted. They requested a d-dimer, which was elevated. They then wanted a CT angiogram. Unfortunately, the patient's creatinine is a bit elevated, so it was decided to admit her for IV hydration, so that we can perhaps do a CT angiogram in the morning. Oncology felt she was at high risk for blood clots, given her ongoing cancer treatment, and today's episodes of bradycardia and hypotension. April 27: Last evening, the patient brought in her medications in their bubble pack. After admission, she was given her home evening medications. Thereafter, she became very confused and somnolent. She then became agitated and combative. He kept insisting on getting out of bed to urinate even though she had a Miller catheter. When the staff will try to help her up she became weight and required several staff members to get her back into bed. This morning she was very somnolent again. Etiology of her sudden depressed mental status was really not certain. We reviewed her medications, and she is certainly on a number of them that could cause depressed mental status, but the patient's insisted that she takes the same medications the same way every day. She did eventually wake up enough that we sent her for CT angiogram, regarding her hypoxemia. This did not show evidence of pulmonary embolism. Later today, she was awake enough to start requesting her medications again. She was given all but the tizanidine, and so far has remained fairly awake and cooperative this afternoon. I did call her oncologist, Dr. Silverio's, office and got Dr. Witt, the physician stone mill operator. I reviewed the case with her, and the patient's confusion, and her medications. They requested that the patient undergo brain MRI, even though MRI about 1 month ago looked okay. This was done, and does not show any lesions worrisome for metastases or any explanation for confusion. April 28: , The patient is much more alert. Nurses notes she has been walking a few steps from her bed to her wheelchair. She is awake and ate breakfast. She is reporting that she needs to be discharged soon, as she and her plan to travel to [place], to visit her mother, who she says is dying. She reports she has had a bad headache for most of the day. Unfortunately, her hemoglobin and platelets continue to decline. I did call and speak with her oncologist again today, Dr. Silverio, and we reviewed her test results and her symptoms. He felt that since she is getting ready to travel, we should transfuse her to get her hematocrit just a bit higher, as she really does not have much room for error. He thinks the platelet count will be okay, and that she will not have spontaneous bleeding, but he would like her to have that rechecked in the next few days. He was hoping she could come into his office on Tuesday to have labs drawn. Fortunately, the patient states she plans on being out of town for the next 1-[address] Silverio is not quite sure why her counts are falling, as she has been responding to chemotherapy recently. He is concerned that he might need to change her cancer treatment again soon. Otherwise, the patient denies fever chills, dizziness, chest pain or palpitations, shortness of breath, abdominal pain, nausea or vomiting, diarrhea or constipation, dysuria. We did withhold her tizanidine, in case that was affecting her mental status. Otherwise she appears quite comfortable today on her usual medications. - Constitutional Vitals: Vital Signs Temp Pulse Resp BP Pulse Ox 98.4 F 88 16 138/85 90 04/28/17 11:56 04/28/17 04:00 04/28/17 11:56 04/28/17 11:56 04/28/17 11:56 Period Temp Pulse Resp BP Sys/Miller Pulse Ox Last 24 Hr 96.9 F-98.8 F 88-93 16-20 138-171/77-91 90-98 Intake and Output 04/28/17 04/28/17 04/28/17 05:59 13:59 21:59 Intake Total 1600 / 1600 1360 / 1360 Output Total 1500 / 1500 1450 / 1450 Balance 100 / 100 -90 / -90 Intake & Output: Intake & Output 04/28/17 04/28/17 04/28/17 05:59 13:59 21:59 Intake Total 1600 / 1600 1360 / 1360 Output Total 1500 / 1500 1450 / 1450 Balance 100 / 100 -90 / -90 Intake: IV 1000 / 1000 1000 / 1000 Dextrose 5%-1/2Ns W/20Meq KCl 1 1000 / 1000 1000 / 1000 ,000 ml @ 125 mls/hr IV .Q8H [facility] Rx#:[id number] Oral 600 / 600 360 / 360 Output: Void Amount 1500 / 1500 1450 / 1450 Uretheral (Miller) 0 / 0 Other: Meal Lunch Percent of Meal Consumed 100% # Voids 1 1 The patient is lying down in bed, but is awake and alert. Neck is supple without lymphadenopathy or JVD. Cardiac exam shows regular rate and rhythm. Lungs were clear to auscultation. Abdomen was soft and nontender. Extremities show no edema. neurologic exam: Patient is awake and alert, calm and cooperative. Neuro exam is grossly nonfocal. Medical - PN: Obj Da - Labs CBC & Chem 7: 04/28/17 04:00 04/28/17 04:00 Labs: Abnormal Lab Results 04/28/17 04/28/17 04/27/17 04:00 04:00 05:40 RBC 1.87 L Hgb 7.1 L Hct 21.1 L MCV 113.3 H MCH 38.3 H RDW 19.9 H Plt Count 35 L* D-Dimer BUN Creatinine Glucose 120 H 134 H Magnesium 1.5 L GGT 141 H 153 H AST 90 H 118 H Lactate Dehydrogenase 620 H 864 H Albumin 3.0 L 3.1 L Globulin Albumin/Globulin Ratio 0.9 L 0.9 L 04/27/17 04/26/17 04/26/17 05:40 16:01 16:01 RBC 1.98 L Hgb 7.7 L Hct 22.7 L MCV 114.7 H MCH 38.7 H RDW 19.6 H Plt Count 43 L* D-Dimer 2.66 H BUN 27 H Creatinine 1.4 H Glucose Magnesium GGT AST 95 H Lactate Dehydrogenase Albumin Globulin 3.8 H Albumin/Globulin Ratio 0.9 L 04/26/17 16:01 RBC 2.16 L Hgb 8.4 L Hct 24.8 L MCV 114.9 H MCH 38.8 H RDW 20.5 H Plt Count 56 L D-Dimer BUN Creatinine Glucose Magnesium GGT AST Lactate Dehydrogenase Albumin Globulin Albumin/Globulin Ratio April 27: Blood cultures negative so far. Brain MRI. IMPRESSION: Mild atrophy and scattered high signal foci in the cerebral white matter likely ischemic lesions rather than plaques. No change since comparison study over one month prior 03/18/2017 CT angiogram of the chest:IMPRESSION:No evidence of pulmonary embolus or other acute cardiopulmonary process Mild chronic bronchitis. Subtotal cicitration atelectasis in the anterior, medial, posterior and lateral basilar segments of the left lower lobe. This has progressed modestly 2015. There is also small band like regions of pleural parenchymal scarring in the anterior segment left upper lobe and posterior basilar segment right lobe lower lobe with minor subsegmental traction bronchiectasis. Diffuse intramedullary sclerosis throughout the thoracic spine ribs and sternum. There is a new finding since the 2015 CT. This finding has a broad differential diagnosis. With the patient's history of metastatic breast carcinoma, is could represent diffuse osteoblastic metastases. Other potential findings include myelofibrosis, hyperparathyroidism, malignancy (leukemia or lymphoma) Paget's disease and mastocytosis. April 26: D-dimer is elevated at 2.66. Lactic acid is normal at 1.1 Urinalysis shows pH of 5, specific gravity 1.010, negative glucose, nitrites, leukocyte esterase Chest x-ray: Shows moderate hiatal hernia. Otherwise no acute disease. EKG: Shows sinus tachycardia at a rate of 100, with slight left axis deviation. Small Q waves noted in leads I and L. There is no acute ST-T changes. Meds: Medications Acetaminophen (Tylenol) 650 mg PO Q6HP PRN PRN Reason: PAIN/FEVER > 101 Hydrocodone Bitart/Acetaminophen ([place] 7.5/325mg) 1 tab PO QIDP PRN PRN Reason: Pain Last Admin: 04/28/17 14:27 Dose: 1 tab Albuterol Sulfate (Ventolin) 2.5 mg NEB Q2HP PRN PRN Reason: Shortness Of Breath Baclofen (Lioresal) 20 mg PO TID [facility] Last Admin: 04/28/17 14:27 Dose: 20 mg Calcium Carbonate/Glycine (Tums) 1,000 mg CHEWED Q4HP PRN PRN Reason: Dyspepsia Docusate Sodium (Colace) 100 mg PO BIDP PRN PRN Reason: Constipation Ferrous Gluconate (Fergon) [facility] Last Admin: 04/28/17 08:25 Dose: 324 mg Folic Acid (Folic Acid) 1 mg PO QDAY [facility] Last Admin: 04/28/17 11:18 Dose: 1 mg Gabapentin (Neurontin) 1,200 mg PO TID [facility] Last Admin: 04/28/17 14:27 Dose: 1,200 mg Potassium Chloride/Dextrose/Sod Cl (Dextrose 5%-1/2ns W/20meq Kcl) 1,000 mls @ 125 mls/hr IV .Q8H [facility] Last Admin: 04/28/17 14:23 Dose: Not Given Sodium Chloride (Sodium Chloride 0.9%) 250 mls @ 20 mls/hr IV .[id number] [facility] Stop: 04/29/17 03:29 Ibuprofen (Motrin) 600 mg PO QIDP PRN PRN Reason: PAIN/FEVER > 101 Last Admin: 04/28/17 14:27 Dose: 600 mg Iron Carb/Multivit/[place]/Folic Acid (Multivitamin W/Minerals) 1 tab PO DAILY [facility] Last Admin: 04/28/17 11:16 Dose: 1 tab Lorazepam (Ativan) 3 mg PO QHS [facility] Last Admin: 04/27/17 21:12 Dose: 3 mg Magnesium Hydroxide (Milk Of Magnesia) 30 ml PO DAILYP PRN PRN Reason: Constipation Methotrexate (Methotrexate) 15 mg PO Desai@0900 [facility] Montelukast Sodium (Singular) 10 mg PO QDAY [facility] Last Admin: 04/28/17 11:17 Dose: 10 mg Morphine Sulfate (Ms Contin) 15 mg PO BID [facility] Last Admin: 04/28/17 09:22 Dose: 15 mg Morphine Sulfate (Morphine) 4 mg IV Q4HP PRN PRN Reason: Pain Last Admin: 04/27/17 05:20 Dose: 4 mg Naloxone HCl (Narcan) 0.1 mg IV Q2MIN PRN PRN Reason: Opiate Reversal Omeprazole (Prilosec) 40 mg PO BIDAC [facility] Last Admin: 04/28/17 08:25 Dose: 40 mg Ondansetron HCl (Zofran) 4 mg IV Q6HP PRN PRN Reason: Nausea And Vomiting Last Admin: 04/28/17 09:20 Dose: 4 mg Polyethylene Glycol (Miralax) 17 gm PO DAILY [facility] Last Admin: 04/28/17 11:17 Dose: 17 gm Sodium Chloride (Saline Flush) 10 ml IV Q8 [facility] Last Admin: 04/28/17 14:23 Dose: Not Given Tamoxifen Citrate (Tamoxifen) 20 mg PO DAILY [facility] Last Admin: 04/28/17 11:18 Dose: 20 mg Trazodone HCl (Desyrel) 250 mg PO HS [facility] Last Admin: 04/27/17 21:12 Dose: 250 mg Venlafaxine HCl (Effexor Xr) 150 mg PO QDAY [facility] Last Admin: 04/28/17 11:16 Dose: 150 mg Medical - PN: A/P - Time Spent With Patient Total time spent is greater than 50% in coordination of care (as documented) at patient's floor/unit and/or counseling patient: 25 - 35 minutes (1) Dehydration Status: Acute Current Visit: Yes (2) Orthostatic hypotension Status: Acute Current Visit: Yes (3) Anemia Status: Acute Current Visit: Yes (4) Thrombocytopenia Status: Acute Current Visit: Yes (5) Metastatic breast cancer Problem details: with bone metasteses, anemia and fatigue Status: Chronic Current Visit: No (6) Rheumatoid arthritis Status: Chronic Current Visit: No (7) Fibromyalgia Status: Chronic Current Visit: No - Narrative A/P Narrative: #1. Weakness. Patient presents with increasing weakness. She was hypotensive in the emergency room, and appears to be dehydrated. She had mild tachycardia and borderline room air hypoxia in the emergency room. Oncology was contacted, and they wanted her treated aggressively, and evaluated for possible pulmonary embolism. The night of admission, patient became quite somnolent and limp after taking her usual medications. She appeared oversedated. tizanidine was held, and other morning medications were given late. Yesterday afternoon she appeared to wake up, and has not had trouble with somnolence since then. This was reviewed with her oncologist, and he was quite convinced that she must be over taking 1 of her medications. However the patient and her were quite insistent that she takes her medications exactly as prescribed. Today, we have continue to hold the type tizanidine, as she also receives baclofen. She reports she thought she was supposed to be taking that to help her sleep, but she actually was taking both muscle relaxers 3 times daily at home.. 2. Pulmonary. Patient presents with tachycardia and borderline room air hypoxemia. D-dimer is elevated. -CT angiogram does not show PE.. 3. Hematologic. The patient is quite a bit more anemic than previously, and also has very low platelets. She is high risk for use of heparins and other anticoagulants. CT scan today shows medullary sclerosis, which may be contributing to her relative pancytopenia. -Hemoglobin and platelets continue to fall. This was reviewed at length today with Dr. Silverio of oncology. Since she is going to leave town this weekend, he suggested we transfuse her 1 unit of packed red blood cells this evening. He would like to her to have her platelet count rechecked in a few days. Unfortunately, the patient plans on being out of town for the next 2 weeks, attending to her mother. I have asked her to touch base with her family in [place] to see if perhaps they could find her a place to arrange follow-up labs. She seems quite insistent that she will not be coming back into town to have any follow-up in the next week or 2. 4. Oncology. This patient has known metastatic breast cancer. She is apparently undergoing ongoing chemotherapy. -It sounds like the patient has had very poor oral intake at home, and increasingly difficult to control pain. At this time, the patient would like to be discharged soon, and continue to manage her own medications at home. -Continue as needed morphine, hydrocodone. The oncology office did call us today, and noted that the patient is on a pain contract, and should not receive any extra pain prescriptions from us. -Continue letrozole, and other chemo as recommended by oncology. 5. CODE STATUS: The patient has requested a DNR CODE STATUS. Apparently her is objecting to this. For now, I will abide by the patient's wishes. 6. DVT prophylaxis: Due to very low platelets, we will use SCDs instead of heparin at this time. 7. Rheumatology History of rheumatoid arthritis. Continue baclofen, folate, gabapentin, methotrexate, venlafaxine. Tizanidine is on hold. So far today, the patient appears fairly comfortable. 8. . Chronic urinary incontinence issues. Continue Flomax. 9. GI. GERD? Continue omeprazole. Continue MiraLAX. 10. Depression? Continue venlafaxine, trazodone, lorazepam. Approximately 35 minutes was spent today, reviewing test results, interviewing and examining the patient, ordering more tests and reviewing results of those, and then reviewing the case at length with oncology. Medical - PN: Qual - Stroke Symptom Onset Unknown: No - VTE Deep Vein Thrombosis/Pulmonary Embolism Present on Admission: No
[2017-04-28] MEDS: traZODone HCL 50 MG TABLET PO SCH (21:17)
[2017-04-28] MEDS: LORazepam 1 MG TABLET PO SCH (21:18)
[2017-04-29] MEDS: DEXTROSE 5%-1/2NS W/20MEQ KCL 1,000 ML IV SCH ×3 (03:08→15:31)
[2017-04-29] MEDS: 0.9 % SODIUM CHLORIDE 10 ML SYRINGE IV SCH ×2 (05:07→15:31)
[2017-04-29 05:58] LABS: Basophils # (Auto) 0 K/mcL (0.0-0.3); Basophils % (Auto) 0.4 % (0.0-2.0); Eosinophils # (Auto) 0.2 K/mcL (0.0-0.7); Eosinophils % (Auto) 2.7 % (0.0-7.0); Granulocytes % (Auto) 57.5 % (38.0-78.0); Lymphocytes % (Auto) 33.2 % (15.5-49.0); Mean Cell Volume 109.6 fL (80.0-100.0); Mean Corpuscular HGB Conc 33.4 g/dL (31.0-36.0); Mean Corpuscular Hemoglobin 36.6 pg (26.0-34.0); Monocytes # (Auto) 0.6 K/mcL (0.1-0.9); Monocytes % (Auto) 6.2 % (1.0-12.0); Platelet Count 22 K/mcL (140-440); RBC 2.26 M/mcL (4.00-5.20); Red Cell Distribution Width 21.9 % (11.5-14.5)
[2017-04-29 06:09] LABS: ALT/SGPT 29 U/l (0-40); Albumin 2.8 gm/dL (3.2-5.2); Albumin/Globulin Ratio 0.8 (1.0-2.3); Alkaline Phosphatase 81 U/L (39-117); Bilirubin,Direct 0.3 mg/dL (0.0-0.3); Blood Urea Nitrogen 10 mg/dl (8-23); Gamma Glutamyl Transpeptidase 148 U/L (5-36); Magnesium 1.8 mg/dL (1.6-2.5); Uric Acid 5.6 mg/dL (2.5-8.0)
[2017-04-29] MEDS: OMEPRAZOLE 20 MG CAPSULE PO SCH ×2 (07:09→18:56)
[2017-04-29] MEDS: GABAPENTIN 400 MG CAPSULE PO SCH ×2 (08:57→15:30)
[2017-04-29] MEDS: FOLIC ACID 1 MG TABLET PO SCH (08:58)
[2017-04-29] MEDS: VENLAFAXINE 150 MG CAP.XL.24H PO SCH (08:58)
[2017-04-29] MEDS: FERROUS GLUCONATE 324 MG TABLET PO SCH (08:58)
[2017-04-29] MEDS: MONTELUKAST 10 MG TABLET PO SCH (08:58)
[2017-04-29] MEDS: POLYETHYLENE GLYCOL 3350 17 GM PACKET PO SCH (08:58)
[2017-04-29] MEDS: MULTIVIT,THER IRON,CA,FA & MIN 1 TABLET PO SCH (08:58)
[2017-04-29] MEDS: BACLOFEN 10 MG TABLET PO SCH ×2 (08:58→15:30)
[2017-04-29] MEDS: TAMOXIFEN 10 MG TABLET PO SCH (08:58)
[2017-04-29] MEDS: morphine 15 MG TAB.SR.12H PO SCH (08:58)
[2017-04-29] MEDS: IBUPROFEN 600 MG TABLET PO PRN (09:46)
[2017-04-29] MEDS: ONDANSETRON 4 MG/2 ML VIAL IV PRN (10:13)
--- NOTE | 2017-04-29 13:03 | Discharge Summary ---
Medical - DS: Prov Patient information: Note initiated : 04/29/17 at 1:02 pm Service Date, if different from initiated Date: [] Patient: Marika Bettencourt 66 y/o F admitted on 04/26/17 for Dizziness, Productive Cough/Weakness, Dehydration. Chief Complaint: [] Date of admission: 04/26/17 21:27 Discharge date: 04/29/17 Primary care physician: Curtis Batista Admitting clinician: Millie Singh Consults: 04/26/17 19:24 Consult to Physician [CONS] Stat Comment: Consulting Provider: Millie Singh Reason For Exam: Physician to Consult Attending physician on discharge: Millie Singh Medical - DS: Meds - Discharge Medications Active and Home Medications: Discharge medications: Tylenol 650 mg every 6 hours as needed Baclofen 20 mg p.o. 3 times daily for muscle spasms Calcium carbonate/Tums every 4 hours as needed indigestion Docusate sodium 100 mg twice daily as needed constipation Iron gluconate 324 mg daily Folate 1 mg daily Gabapentin 1200 mg p.o. 3 times daily [place] 7.5/325 one 4 times daily as needed uncontrolled pain Multivitamin 1 daily Lorazepam 3 mg nightly as needed Milk of magnesia 30 mL daily as needed constipation Methotrexate 15 mg p.o. weekly Singulair 10 mg daily Morphine/MS Contin 15 mg p.o. twice daily Omeprazole 40 mg p.o. twice daily MiraLAX 17 g p.o. daily for constipation Tamoxifen 20 mg p.o. daily Trazodone 250 mg p.o. nightly for sleep Effexor 150 mg p.o. daily Stop tizanidine, as the combination of this with your other medication seems to make you very drowsy. Previous home Medications gabapentin 600 mg tablet 1,200 mg PO TID 04/06/16 [History Confirmed 04/26/17 Last Taken 04/26/17 12:00] hydrocodone 7.5 mg-acetaminophen 325 mg tablet 1 tab PO QIDP PRN tab 04/06/16 [ History Confirmed 04/26/17 Last Taken 04/26/17 14:00] montelukast 10 mg tablet 10 mg PO QDAY tab 04/06/16 [History Confirmed Last Taken 04/26/17 08:00] tizanidine 4 mg capsule 4 mg PO TID cap 04/06/16 [History Confirmed 04/26/17 Last Taken 04/26/17 12:00] folic acid 1 mg tablet 1 mg PO QDAY #30 tab 01/06/17 [Rx Confirmed 04/26/17 Last Taken 04/26/17 08:00] ferrous gluconate 324 mg (36 mg iron) tablet 324 mg PO QDAY 01/18/17 [History Confirmed 04/26/17 Last Taken 04/26/17 14:00] omeprazole 20 mg capsule,delayed release 40 mg PO BID 01/18/17 [History Confirmed 04/26/17 Last Taken 04/26/17 12:00] tamsulosin 0.4 mg capsule 0.4 mg PO QDAY #30 cap 01/18/17 [Rx Confirmed Last Taken 04/26/17 08:00] venlafaxine ER 150 mg capsule,extended release 24 hr 150 mg PO QDAY 01/18/17 [ History Confirmed 04/26/17 Last Taken 04/26/17 08:00] baclofen 20 mg tablet 20 mg PO TID tab 02/10/17 [History Confirmed 04/26/17 Last Taken 04/26/17 12:00] lorazepam 1 mg tablet 3 mg PO QHS tab 02/10/17 [History Confirmed 04/26/17 Last Taken 04/25/17 21:00] trazodone 100 mg tablet 250 mg PO QDAY tab 02/10/17 [History Confirmed Last Taken 04/25/17 21:00] Methotrexate Sodium [Methotrexate] 15 mg PO QWEEK 04/26/17 [History Confirmed Last Taken 04/24/17 08:00] Tamoxifen 20 mg PO DAILY 04/26/17 [History Confirmed 04/26/17 Last Taken 08:00] morphine SULFATE [Morphine Sulfate ER] 20 mg PO BID 04/26/17 [History Confirmed 04/26/17 Last Taken 04/26/17 08:00] Medical - DS: Hosp Hospital course: Mr. Bettencourt is a 66 year old F April 26, 2017, history of present illness: Ms. Bettencourt is a 66 year old female who was diagnosed with breast cancer in approximately 2005. She now has metastatic breast cancer, stage IV, with metastases to bone, etc. She is currently receiving both tamoxifen and and immunotherapy injection every [address] Silverio's oncology group. She presented to Dr. Duran's office today for follow-up, and he found her blood pressure to be quite low. He called Dr. Batista, who asked her to go to the emergency room for evaluation. The patient notes she has been slightly dizzy on and off for the last couple of months. She has been feeling a little more fatigued, and in general is able to get herself in and out of bed and into her wheelchair, which is her normal mode of transportation. She says she tries to drink at least 4-6 cups of fluid every day. She otherwise does not think that she has felt a lot different lately. She denies fever chills, headaches or dizziness, although she has a history of migraines. She denies new eye or ear symptoms. She says her throat is sore only occasionally. She denies chest pain or palpitations, shortness of breath or wheezing. She does have chronic phlegm in her throat. She denies abdominal pain, nausea or vomiting, diarrhea or constipation, or dysuria. ER evaluation initially looked like dehydration. She was given IV fluids, but then had more nausea and vomiting and dropped her blood pressure into the 70s. She was also rather bradycardic. Her oncologist vocational school teacher was contacted. They requested a d-dimer, which was elevated. They then wanted a CT angiogram. Unfortunately, the patient's creatinine is a bit elevated, so it was decided to admit her for IV hydration, so that we can perhaps do a CT angiogram in the morning. Oncology felt she was at high risk for blood clots, given her ongoing cancer treatment, and today's episodes of bradycardia and hypotension. April 27: Last evening, the patient brought in her medications in their bubble pack. After admission, she was given her home evening medications. Thereafter, she became very confused and somnolent. She then became agitated and combative. He kept insisting on getting out of bed to urinate even though she had a Miller catheter. When the staff will try to help her up she became weight and required several staff members to get her back into bed. This morning she was very somnolent again. Etiology of her sudden depressed mental status was really not certain. We reviewed her medications, and she is certainly on a number of them that could cause depressed mental status, but the patient's insisted that she takes the same medications the same way every day. She did eventually wake up enough that we sent her for CT angiogram, regarding her hypoxemia. This did not show evidence of pulmonary embolism. Later today, she was awake enough to start requesting her medications again. She was given all but the tizanidine, and so far has remained fairly awake and cooperative this afternoon. I did call her oncologist, Dr. Silverio's, office and got Dr. Witt, the physician vocational school teacher. I reviewed the case with her, and the patient's confusion, and her medications. They requested that the patient undergo brain MRI, even though MRI about 1 month ago looked okay. This was done, and does not show any lesions worrisome for metastases or any explanation for confusion. April 28: , The patient is much more alert. Nurses notes she has been walking a few steps from her bed to her wheelchair. She is awake and ate breakfast. She is reporting that she needs to be discharged soon, as she and her plan to travel to [place], to visit her mother, who she says is dying. She reports she has had a bad headache for most of the day. Unfortunately, her hemoglobin and platelets continue to decline. I did call and speak with her oncologist again today, Dr. Silverio, and we reviewed her test results and her symptoms. He felt that since she is getting ready to travel, we should transfuse her to get her hematocrit just a bit higher, as she really does not have much room for error. He thinks the platelet count will be okay, and that she will not have spontaneous bleeding, but he would like her to have that rechecked in the next few days. He was hoping she could come into his office on Tuesday to have labs drawn. Fortunately, the patient states she plans on being out of town for the next 1-[address] Silverio is not quite sure why her counts are falling, as she has been responding to chemotherapy recently. He is concerned that he might need to change her cancer treatment again soon. Otherwise, the patient denies fever chills, dizziness, chest pain or palpitations, shortness of breath, abdominal pain, nausea or vomiting, diarrhea or constipation, dysuria. We did withhold her tizanidine, in case that was affecting her mental status. Otherwise she appears quite comfortable today on her usual medications. April 29: Hospital course: This patient was admitted with weakness, followed by mild somnolence and confusion. It appeared she was oversedated by her usual medications. 1 of her muscle relaxers was discontinued, and her mental status gradually became more alert. I did review her case on multiple occasions with oncology. We did do a follow-up MRI of her brain, which did not have any new findings. Today, she was awake and alert, and had been up out of bed a couple of times walking to and from the bathroom. She is quite adamant that she feels well enough to go home. Unfortunately, she plans to take a road trip to [place] this weekend, to visit her mother who is very ill. Her blood counts have were borderline on admission, and platelet count is continued to drop throughout her stay. Today her platelet count is only 22, 000. I did speak with her oncologist, Dr. Silverio, once again today. He is worried about how fast her platelets are dropping, and would like her to come to his clinic on Tuesday for a bone marrow biopsy. Otherwise, the patient denies fever or chills. She did have a headache this morning, and then had one episode of nausea and vomiting, after which her headache and nausea resolved. She reports she feels well enough to go home. She denies chest pain or palpitations, shortness of breath, abdominal pain or diarrhea. On exam, she is awake and alert. Neck is supple without lymphadenopathy or JVD. Cardiac exam shows regular rate and rhythm. Lungs were clear to auscultation. Abdomen was soft and nontender. Extremities show no edema. neurologic exam: Patient is awake and alert, calm and cooperative. Neuro exam is grossly nonfocal. #1. Weakness. Patient presents with increasing weakness. She was hypotensive in the emergency room, and appears to be dehydrated. She had mild tachycardia and borderline room air hypoxia in the emergency room. Oncology was contacted, and they wanted her treated aggressively, and evaluated for possible pulmonary embolism. The night of admission, patient became quite somnolent and limp after taking her usual medications. She appeared oversedated. tizanidine was held, and other morning medications were given late. Yesterday afternoon she appeared to wake up, and has not had trouble with somnolence since then. This was reviewed with her oncologist, and he was quite convinced that she must be over taking 1 of her medications. However the patient and her were quite insistent that she takes her medications exactly as prescribed. -The patient is now fully awake, alert, and apparently back to baseline. I have encouraged her to discontinue the tizanidine altogether. She will continue with her other usual medications. 2. Pulmonary. Patient presents with tachycardia and borderline room air hypoxemia. D-dimer was elevated. -CT angiogram does not show PE.. 3. Hematologic. The patient is quite a bit more anemic than previously, and also has very low platelets. She is high risk for use of heparins and other anticoagulants. CT scan shows medullary sclerosis, which may be contributing to her relative pancytopenia. -Hemoglobin and platelets continue to fall. This was reviewed again today with Dr. Silverio of oncology. Hemoglobin did improve today, after receiving 1 unit of packed red blood cells last night. However platelets continue to fall. He apparently called her on her cell phone, and it sounds like is convinced her to come to his office on Tuesday for a bone marrow biopsy. We have both asked her to delay her trip to [place], until we can get this sorted out, given her high risk of bleeding if platelets continue to fall at this rate. 4. Oncology. This patient has known metastatic breast cancer. She is apparently undergoing ongoing chemotherapy. -It sounds like the patient has had very poor oral intake at home, and increasingly difficult to control pain. At this time, the patient would like to be discharged soon, and continue to manage her own medications at home. -Continue as needed morphine, hydrocodone. -Continue letrozole, and other chemo as recommended by oncology. 5. CODE STATUS: The patient has requested a DNR CODE STATUS. Apparently her is objecting to this. For now, I will abide by the patient's wishes. 6. DVT prophylaxis: Due to very low platelets, we will use SCDs instead of heparin at this time. 7. Rheumatology History of rheumatoid arthritis. Continue baclofen, folate, gabapentin, methotrexate, venlafaxine. Tizanidine is on hold. So far today, the patient appears fairly comfortable. 8. . Chronic urinary incontinence issues. Continue Flomax. 9. GI. GERD? Continue omeprazole. Continue MiraLAX. 10. Depression? Continue venlafaxine, trazodone, lorazepam. Approximately 35 minutes was spent today, reviewing test results, interviewing and examining the patient, and then reviewing the case with oncology. Discharge diagnosis: Weakness, oversedation. Metastatic breast cancer. Thrombocytopenia Secondary discharge diagnosis: Worsening anemia. - Time Spent with Patient Total time spent providing and/or coordinating discharge services: Greater than 30 minutes Medical - DS: Exam - Constitutional Vitals: Vital Signs Temp Pulse Resp BP Pulse Ox 04/29/17 08:00 97.1 F 16 151/89 95 04/29/17 04:00 98.3 F 80 16 146/82 97 04/28/17 23:49 97.8 F 92 H 16 127/81 96 04/28/17 22:45 96 04/28/17 20:00 97.1 F 87 16 145/89 97 04/28/17 18:07 97.2 F 145/80 98 04/28/17 17:32 98 F 97 H 20 150/82 96 Intake and Output 04/28/17 04/29/17 04/29/17 21:59 05:59 13:59 Intake Total 1719 / 1719 860 / 860 120 / 120 Output Total 300 / 300 975 / 975 700 / 700 Balance 1419 / 1419 -115 / -115 -580 / -580 Intake: IV 1394 / 1394 510 / 510 Dextrose 5%-1/2Ns W/20Meq KCl 1 1394 / 1394 510 / 510 ,000 ml @ 125 mls/hr IV .Q8H [facility] Rx#:[id number] Oral 350 / 350 120 / 120 Blood Product 325 / 325 Output: Void Amount 300 / 300 975 / 975 400 / 400 Emesis 300 / 300 Other: Meal Dinner Breakfast Percent of Meal Consumed 75% 100% Feeding Ability Independent # Voids 1 1 Weight 218 lb Medical - DS: Data Labs on day of discharge: Labs from last 24 hours 04/29/17 04/29/17 04:00 04:00 WBC 9.2 RBC 2.26 L Hgb 8.3 L Hct 24.7 L MCV 109.6 H MCH 36.6 H MCHC 33.4 RDW 21.9 H Plt Count 22 L* MPV 9.4 Gran % 57.5 Lymph % (Auto) 33.2 [place] % (Auto) 6.2 Eos % (Auto) 2.7 Baso % (Auto) 0.4 Gran # 5.3 Lymph # (Auto) 3.0 C[place] # (Auto) 0.6 Eos # (Auto) 0.2 Baso # (Auto) 0 Sodium 140 Potassium 5.0 Chloride 106 Carbon Dioxide 27 Anion Gap 7.0 L BUN 10 Creatinine 0.9 GFR Calculation 67 Glucose 114 H Uric Acid 5.6 Calcium 9.0 Phosphorus 4.1 Magnesium 1.8 Total Bilirubin 0.6 Direct Bilirubin 0.3 GGT 148 H AST 80 H ALT 29 Alkaline Phosphatase 81 Lactate Dehydrogenase 462 H Total Protein 6.2 Albumin 2.8 L Globulin 3.4 Albumin/Globulin Ratio 0.8 L Triglycerides 44 Preliminary micro results at discharge 04/26/17 16:09 Blood Culture - Preliminary Blood 04/26/17 16:01 Blood Culture - Preliminary Blood April 27: Blood cultures negative so far. Brain MRI. IMPRESSION: Mild atrophy and scattered high signal foci in the cerebral white matter likely ischemic lesions rather than plaques. No change since comparison study over one month prior 03/18/2017 CT angiogram of the chest:IMPRESSION:No evidence of pulmonary embolus or other acute cardiopulmonary process Mild chronic bronchitis. Subtotal cicitration atelectasis in the anterior, medial, posterior and lateral basilar segments of the left lower lobe. This has progressed modestly 2014. There is also small band like regions of pleural parenchymal scarring in the anterior segment left upper lobe and posterior basilar segment right lobe lower lobe with minor subsegmental traction bronchiectasis. Diffuse intramedullary sclerosis throughout the thoracic spine ribs and sternum. There is a new finding since the 2014 CT. This finding has a broad differential diagnosis. With the patient's history of metastatic breast carcinoma, is could represent diffuse osteoblastic metastases. Other potential findings include myelofibrosis, hyperparathyroidism, malignancy (leukemia or lymphoma) Paget's disease and mastocytosis. April 26: D-dimer is elevated at 2.66. Lactic acid is normal at 1.1 Urinalysis shows pH of 5, specific gravity 1.010, negative glucose, nitrites, leukocyte esterase Chest x-ray: Shows moderate hiatal hernia. Otherwise no acute disease. EKG: Shows sinus tachycardia at a rate of 100, with slight left axis deviation. Small Q waves noted in leads I and L. There is no acute ST-T changes. Medical - DS: A/P - Patient/Caregiver Discharge Instructions Activity: increase activity as tolerated Diet: Regular Diet Additional Instructions: Regular diet as tolerated. Increase activity as tolerated. 1. Weakness. You were admitted with increasing weakness and you to be oversedated. We held 1 of the 2 muscle relaxers that you are taking, and she became more alert. Please do not resume this muscle relaxer, tizanidine, unless advised to do so by year physician. -A CAT scan of your chest did not show signs of blood clots. Scan of your brain did not show any stroke or other new problems. 2. Anemia. Your anemia got worse during her stay, so you were transfused 1 unit of red blood cells. Return to ER for fever, chills, nausea/vomiting, dizziness, unable to urinate, pain not controlled with medication or any other concerns. Your platelet count has continued to decline throughout your stay. This increases your risk of bleeding. This was reviewed with your oncologist several times. He has advised that you report to his office in 2 days, on Tuesday for a bone marrow biopsy. He and I both advised against a long road trip and staying out of town for a long period, as he feels you need follow-up with him sometime soon. Discharge medications: Tylenol 650 mg every 6 hours as needed Baclofen 20 mg p.o. 3 times daily for muscle spasms Calcium carbonate/Tums every 4 hours as needed indigestion Docusate sodium 100 mg twice daily as needed constipation Iron gluconate 324 mg daily Folate 1 mg daily Gabapentin 1200 mg p.o. 3 times daily [place] 7.5/325 one 4 times daily as needed uncontrolled pain Multivitamin 1 daily Lorazepam 3 mg nightly as needed Milk of magnesia 30 mL daily as needed constipation Methotrexate 15 mg p.o. weekly Singulair 10 mg daily Morphine/MS Contin 15 mg p.o. twice daily Omeprazole 40 mg p.o. twice daily MiraLAX 17 g p.o. daily for constipation Tamoxifen 20 mg p.o. daily Trazodone 250 mg p.o. nightly for sleep Effexor 150 mg p.o. daily Stop tizanidine, as the combination of this with your other medication seems to make you very drowsy. - Problem Maintenance (1) Dehydration Status: Acute (2) Orthostatic hypotension Status: Acute (3) Anemia Status: Acute (4) Thrombocytopenia Status: Acute (5) Metastatic breast cancer Status: Chronic Comment: with bone metasteses, anemia and fatigue (6) Rheumatoid arthritis Status: Chronic Qualifiers: Rheumatoid arthritis location: multiple sites Rheumatoid factor presence: without rheumatoid factor Qualified Code(s): M06.09 - Rheumatoid arthritis without rheumatoid factor, multiple sites (7) Fibromyalgia Status: Chronic - Follow up Plan Follow up with: Yuval Silverio MD [Physician] - 05/02/17 2:30 pm (Do not miss this appointment. It is very important.) Curtis Batista MD [Primary Care Provider] - Disposition: Home, Self-Care Prognosis: Fair Rehab Potential: Fair Overall status at discharge: patient is progressing back to baseline Medical - DS: Qual - VTE Deep Vein Thrombosis/Pulmonary Embolism Present on Admission: No
[2017-04-29] MEDS ORDERED: HEPARIN SODIUM,PORCINE/PF 500 UNIT/5 ML SYRINGE IV ONE (17:37)
[2017-05-01] MEDS ORDERED: METHOTREXATE SODIUM 2.5 MG TABLET PO SCH (09:00)
== END 2017-04-29 18:40 | disposition home or self-care (01) | DRG 641 ==
LOC: ED 15:38 → MEDSUR 15:38 → OBSVTOIN 21:27 → MEDSUR 21:37
PROVIDERS: ADMIT Internal Medicine; ATTEND Internal Medicine